=== PATIENT | female | born 1975 | race Caucasian/White ===

== ENCOUNTER → 2017-10-27 | Day surgery (SDC) | payer OTHER ==
[~2017-10-27] MED LIST: GLYCOPYRROLATE 1 MG/5 ML VIAL.; IV RINGERS,LACTATED 1000ML 1,000 ML IV; LIDOCAINE 2% PF Vial for OR 5 ML VIAL.; PROPOFOL 40 ML IV; ePHEDrine PF IN SALINE 50 MG/5 ML DISP.SYRIN IV
== END | disposition home or self-care (01) ==
LOC: SURG 08:33
DX: K64.0 First degree hemorrhoids (principal); K62.89 Other specified diseases of anus and rectum; K63.89 Other specified diseases of intestine
CPT/HCPCS: 45380; 88305; J2704; J3490

== ENCOUNTER → 2019-03-01 | Day surgery (SDC) | payer OTHER ==
[~2019-03-01] MED LIST changes: +CHOL100013 PO; +FLUT9.9S NS; -GLYCOPYRROLATE 1 MG/5 ML VIAL.; +HYDR-2761 PO; +HYDROmorphone 2 MG/ML VIAL IV PRN; -IV RINGERS,LACTATED 1000ML 1,000 ML IV; +IV RINGERS,LACTATED 1000ML 1,000 ML IV SCH; +LACT1CAP8 PO; +LIDOCAINE 1% PF 2 ML VIAL. ID PRN; +LIDOCAINE 2% PF 5 ML VIAL. ONE; -LIDOCAINE 2% PF Vial for OR 5 ML VIAL.; +META-21 PO; +MORPHINE SULFATE 2 MG/ML VIAL. IV PRN; +MULT1TAB52 PO; +ONDANSETRON PF 4 MG/2 ML VIAL. IV PRN; +PROCHLORPERAZINE 10 MG/2 ML VIAL. IV PRN; +PROPOFOL 20 ML IV ONE; -PROPOFOL 40 ML IV; +VEDO300V IV; -ePHEDrine PF IN SALINE 50 MG/5 ML DISP.SYRIN IV; +fentaNYL PF VIAL 100 MCG/2 ML VIAL IV PRN
[2019-03-01 10:56] VITALS: BP 116/56
--- NOTE | 2019-03-05 08:06 | PATHOLOGY ---
[facility] Accession Number: [id number] . 01 Material submitted: . PART A: small bowel - SMALL BOWEL BIOPSY PART B: stomach - GASTRIC ANTRUM AND BODY BIOPSY. Modifiers: body PART C: esophagus - DISTAL ESOPHAGUS BIOPSY. Modifiers: distal PART D: ileum - TERMINAL ILEUM BIOPSY PART E: cecum - CECUM BIOPSY PART F: colon - ASCENDING COLON BIOPSY. Modifiers: ascending PART G: colon - TRANSVERSE COLON BIOPSY. Modifiers: transverse PART H: colon - DESCENDING COLON BIOPSY. Modifiers: descending PART I: colon - SIGMOID BIOPSY. Modifiers: sigmoid PART J: rectum - RECTAL BIOPSY PART K: rectum - RECTAL POLYP BIOPSY . 01 Clinical history: . Nausea History ulcerative colitis . 02 Diagnosis: A. Small bowel biopsies: - No significant pathologic abnormalities. . B. Gastric biopsies, gastric antrum and gastric body: - Congestion and slight chronic inflammation, with focal mild active chronic inflammation of antral-duodenal junction. . C. Esophageal biopsies, distal esophagus: - Segments of gastric mucosa showing congestion and slight chronic inflammation, and small segment of squamous esophageal mucosa. . D. Terminal ileum biopsy: - No significant pathologic abnormalities. . E. Colon biopsies, cecum: - Segments of colonic mucosa with focally hyperplastic mucosal associated lymphoid tissue - negative for active chronic colitis or dysplasia. . F. Colon biopsies, ascending colon: - Segments of colonic mucosa with focally hyperplastic mucosal associated lymphoid aggregate - negative for active chronic colitis or dysplasia. . G. Colon biopsies, transverse colon: - Segments of colonic mucosa with few mucosal associated lymphoid aggregates - negative for active chronic colitis or dysplasia. . H. Colon biopsies, descending colon: - Segments of colonic mucosa containing mucosal associated lymphoid aggregate - negative for active chronic colitis or dysplasia. . I. Colon biopsies, sigmoid colon: - Segments of colonic mucosa containing a mucosal associated lymphoid aggregate - negative for active chronic colitis or dysplasia. . J. Colorectal biopsies, rectum: - Segments of rectal mucosa containing a mucosal associated lymphoid aggregate - negative for active chronic colitis or dysplasia. . K. Colorectal biopsies, rectal polyp: - Hyperplastic polyp with mucosal associated lymphoid aggregate. LBQ/03/02/2019 . 02 Comment: Sections of the small bowel biopsy reveal segments of duodenal mucosa. Where best oriented, the mucosal villi show no sprue-like changes or significant inflammatory changes. . Sections of the gastric biopsy reveal segments of gastric body and gastric antral-duodenal mucosa. The gastric body and antral mucosa shows congestion and slight chronic inflammation. There is focal mild active chronic inflammation of the antral- duodenal junction. A properly controlled immunoperoxidase stain for Helicobacter is negative for Helicobacter organisms. . Sections of the distal esophageal biopsy reveal segments of gastric mucosa showing congestion and slight chronic inflammation, and a small segment of squamous esophageal mucosa. There is no evidence of Barajas's change, dysplasia, or malignancy. . Sections of the terminal ileum biopsy reveal segments of small intestine mucosa with focal mucosal associated lymphoid tissue. The mucosal villi show no sprue-like changes or significant inflammatory changes. . Sections of the cecal, ascending colon, transverse colon, descending colon, sigmoid colon, and rectal biopsies reveal segments of normal appearing colonic and rectal mucosa containing scattered mucosal associated lymphoid aggregates. There is no evidence of an active chronic destructive colitis. There is no dysplasia or evidence of malignancy. . Sections of the rectal polyp biopsy reveal a hyperplastic polyp with a mucosal associated lymphoid aggregate. There are no adenomatous changes or evidence of malignancy. (JPM/db; 03/02/2019) . Special stain performed: Immunoperoxidase stain for Helicobacter on B1 . 02 Electronically signed: . Oumar Nunn MD, Pathologist NPI- [id number] . 01 Gross description: . A. The specimen is received in formalin, labeled "Nikita, Delphine, small bowel BX", are few irregular fragments of malin soft tissue measuring 0.7 x 0.5 x 0.2 cm in aggregate. Entirely submitted in A1. . B. The specimen is received in formalin, labeled "Nikita, Delphine, gastric antrum and body biopsy", are three irregular fragments of malin soft tissue measuring 0.7 x 0.5 x 0.1 cm in aggregate. Entirely submitted in B1. . C. The specimen is received in formalin, labeled "Nikita, Delphine, distal esophagus biopsy", are three irregular fragments of malin-garza soft tissue measuring 0.5 x 0.5 x 0.1 cm in aggregate. Entirely submitted in C1. . D. The specimen is received in formalin, labeled "Nikita, Delphine, terminal ileum BX", are three irregular fragments of malin soft tissue measuring 0.4 x 0.4 x 0.1 cm in aggregate. Entirely submitted in D1. . E. The specimen is received in formalin, labeled "Nikita, Delphine, cecum biopsy", are few irregular fragments of malin soft tissue measuring 0.7 x 0.7 x 0.1 cm in aggregate. Entirely submitted in E1. . F. The specimen is received in formalin, labeled "Nikita, Delphine, ascending colon biopsy", are four irregular fragments of malin soft tissue measuring 0.5 x 0.5 x 0.1 cm in aggregate. Entirely submitted in F1. . G. The specimen is received in formalin, labeled "Nikita, Delphine, transverse colon biopsy", are three irregular fragments of malin soft tissue measuring 0.7 x 0.5 x 0.1 cm in aggregate. Entirely submitted in G1. . H. The specimen is received in formalin, labeled "Nikita, Delphine, descending colon biopsy", are four irregular fragments of malin soft tissue measuring 0.5 x 0.5 x 0.1 cm in aggregate. Entirely submitted in H1. . I. The specimen is received in formalin, labeled "Nikita, Delphine, sigmoid biopsy", are three irregular fragments of malin soft tissue measuring 0.2 cm, 0.3 cm and a 0.6 cm in greatest dimension. Entirely submitted in by I1. . J. The specimen is received in formalin, labeled "Nikita, Delphine, rectal biopsy", are three irregular fragments of malin soft tissue measuring 0.4 x 0.4 x 0.1 cm in aggregate. Entirely submitted in J1. . K. The specimen is received in formalin, labeled "Nikita, Delphine, rectal polyp BX", are two irregular fragments of malin soft tissue measuring 0.2 cm and is 0.3 cm in greatest dimension. Entirely submitted in K1. (SWS; 03/01/2019) SHS/SHS . 02 Pathologist provided ICD-10: K29.50, K20.9, K62.1 . 02 CPT . 452284, 399139, 715000, [id number], 583917, 114460, 542198, 872522, 616656, 693924, 194690, [id number] Specimen Comment: A courtesy copy of this report has been sent to Specimen Comment: [phone], . Specimen Comment: Report sent to / DR TREADWELL Performed at: 01 [facility] [address] [facility] [address], [place] [id number] MD Andrew Mcwilliams MD Phone: [phone] Performed at: 02 [facility] [address] [place], [place] [id number] MD Oumar uNnn MD Phone: [phone]
== END ==
LOC: SURG 08:51
PROVIDERS: ATTEND Internal Medicine Gastroenterology
DX: K29.50 Unspecified chronic gastritis without bleeding (principal); K21.0 Gastro-esophageal reflux disease with esophagitis; K62.1 Rectal polyp; K64.0 First degree hemorrhoids; K51.90 Ulcerative colitis, unspecified, without complications; F15.90 Other stimulant use, unspecified, uncomplicated; Z98.890 Other specified postprocedural states; Z88.0 Allergy status to penicillin; Z88.8 Allergy status to other drugs, medicaments and biological substances; Z88.1 Allergy status to other antibiotic agents; Z91.011 Allergy to milk products; Z86.010 Personal history of colon polyps; Z72.89 Other problems related to lifestyle
CPT/HCPCS: 43239; 45380; 88305; 88342; J2001; J2704